=== PATIENT | female | born 1970 | race Caucasian/White ===

== ENCOUNTER → 2022-07-03 | Outpatient (CLI) | payer MEDICAID | END | disposition home or self-care (01) | LOC: RAH 08:43 | PROVIDERS: ATTEND Internal Medicine Gastroenterology | DX: R13.10 Dysphagia, unspecified (principal) | CPT/HCPCS: 74240 ==

== ENCOUNTER → 2022-07-15 | Outpatient (CLI) | payer MEDICAID | END | disposition home or self-care (01) | LOC: RAH 08:43 | PROVIDERS: ATTEND Otolaryngology Plastic Surgery within the Head & Neck | DX: I88.9 Nonspecific lymphadenitis, unspecified (principal) | CPT/HCPCS: 76536 ==

== ENCOUNTER 2024-09-08 09:09 | Emergency (ER) | payer MEDICAID ==
[~2024-09-08] VITALS: Ht 154.9 cm; Wt 59.0 kg
[2024-09-08 09:11] VITALS: BP 101/70
[2024-09-08 09:35] LABS: BASOPHILS # (AUTO) 0.03 K/uL (0.00-0.20); BASOPHILS % (AUTO) 0.3 % (0.0-5.0); EOSINOPHILS # (AUTO) 0.03 K/uL (0.00-0.70); EOSINOPHILS % (AUTO) 0.3 % (0.0-8.0); HEMATOCRIT 43.6 % (36-48); IMMATURE GRANULOCYTE ABSOLUTE 0.04 K/uL (0-1); LYMPHOCYTES # (AUTO) 1.2 K/uL (1.0-4.8); LYMPHOCYTES % (AUTO) 12.8 % (21.0-51.0); MEAN CORPUSCULAR HEMOGLOBIN 30.4 pg (27.0-33.0); MEAN CORPUSCULAR HGB CONC 34.9 g/dL (32.0-36.0); MEAN CORPUSCULAR VOLUME 87.2 fL (79-99); MONOCYTES # (AUTO) 1.1 K/uL (0.1-1.0); MONOCYTES % (AUTO) 11.7 % (3.0-13.0); NEUTROPHILS # (AUTO) 6.8 K/uL (1.8-7.7); NEUTROPHILS % (AUTO) 74.5 % (40.0-77.0); PLATELET COUNT (AUTO) 215 K/uL (130-400); RED CELL DISTRIBUTION WIDTH 12.7 % (11.0-15.5); WHITE BLOOD COUNT (AUTO) 9.1 K/uL (4.8-10.8)
[2024-09-08 09:45] LABS: INR 1.01 (0.85-1.15); PROTHROMBIN TIME 10.7 SEC (9.6-11.6)
[2024-09-08 09:47] LABS: PARTIAL THROMBOPLASTIN TIME 27.2 SEC (26.3-35.5)
--- NOTE | 2024-09-08 10:03 | EKG ---
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
[2024-09-08 10:26] LABS: ALBUMIN 3.8 g/dL (3.5-5.0); BILIRUBIN,DIRECT 0.2 mg/dL (0.0-0.3); BILIRUBIN,TOTAL 1.1 mg/dL (0.2-1.0); CREATININE 0.5 mg/dL (0.5-1.0); POTASSIUM 3.9 mmol/L (3.5-5.1); TOTAL PROTEIN, SERUM 7.6 g/dL (6.0-8.3)
--- NOTE | 2024-09-08 11:32 | NUR ---
ASSUMED CARE AT THIS TIME. PT JUST PLACED IN MY ED BED 16
[2024-09-08] MEDS: PANTOPrazole 40 MG/VIAL IVP ONE (11:43)
[2024-09-08] MEDS: 0.9%NACL 1000ML 1,000 ML IV ONE (11:43)
[2024-09-08] MEDS: cefTRIAXone 2GM VIAL IVPB ONE (11:43)
[2024-09-08 11:44] VITALS: PULSE 95; RESP 15; TEMP 98.9; O2SAT 98
[2024-09-08] MEDS: ondanSETRON 4MG INJ IVP ONE (11:44)
--- NOTE | 2024-09-08 12:06 | HMCIMG ---
Exam Type: CHEST 1VW Clinical Information: cp Comparison: None Findings: Ill-defined infiltrates of the right lower lobe are seen consistent with pneumonia. The heart is normal in size. The bony and soft tissue structures show no worrisome pathology. IMPRESSION: Findings consistent with pneumonia. Follow-up is advised.
[2024-09-08 12:08] LABS: APPEARANCE,URINE CLOUDY (CLEAR); BILIRUBIN,URINE NEGATIVE (NEGATIVE); COLOR,URINE YELLOW (YELLOW); GLUCOSE, URINE (UA) NEGATIVE (NEGATIVE); KETONES,URINE 20 mg/dL (NEGATIVE); LEUKOCYTE ESTERASE ,URINE 25 Leu/uL (NEGATIVE); NITRATE,URINE NEGATIVE (NEGATIVE); PH,URINE 5.5 (5.0-8.0); PROTEIN,URINE 20 mg/dL (NEGATIVE)
[2024-09-08 12:11] LABS: ADD UA MICROSCOPIC YES
[2024-09-08 12:14] LABS: MUCUS,URINE FEW LPF (None Seen); RBC,URINE 0-1 /HPF (0-1); SQUAMOUS EPITHELIAL CELL,UR MOD /HPF (0-2)
[2024-09-08] MEDS ORDERED: AZIT250T9 PO (13:23)
[2024-09-08] MEDS ORDERED: PANT20TA PO (13:23)
--- NOTE | 2024-09-08 13:23 | ERN ---
ED Note History of Present Illness Stated Complaint: VOMITING Chief Complaint: Hematemesis/Vomiting Blood Time Seen by MD: 09:11 Dictation: 54-year-old female presenting to the emergency department with nausea vomiting diarrhea and dark stool reports that she thinks she might be bleeding and vomiting blood. Patient also reported chronic wound to the left foot no fever no chest pain. Patient reports that she has seen her doctor in the clinic in the past few weeks. Allergies: Coded Allergies: pregabalin (Unverified Allergy, Unknown, 09/08/24) Home Meds Active Scripts Azithromycin (Azithromycin) 250 Mg Tablet, 1 TAB PO AD for 5 Days, #6 TAB 0 Refills 2 the first day followed by 1 for days 2-5 Prov:REI CARRENO MD 09/08/24 Pantoprazole Sodium (Protonix) 20 Mg Tablet.dr, 1 TAB PO DAILY for 10 Days, #10 TAB 0 Refills Prov:REI CARRENO MD 09/08/24 Past Medical History Past Medical History: Other Additional Past Medical Hx: EMPHYSEMA Surgical History: Other Review of System Dictation Constitutional: Negative for fever,chills, and weight loss Eyes: Negative for injury, pain,redness, and discharge ENT: Negative for injury,pain or swelling Cardiovascular: Negative for chest pain, palpitations, and edema Respiratory: Negative for shortness of breath, cough, and wheezing, Abdomen/GI: Per HPI Back: Negative for injury and pain : Negative for injury, bleeding and discharge MS/Extremity: Negative for injury and deformity Skin: Negative for rash, and discoloration Neuro: Negative for headache, weakness, numbness, tingling, and seizure Psych: Negative for suicide ideation, homicidal ideation, and hallucinations Initial Vital Sign VS Vital Signs Date Time Temp Pulse Resp B/P (MAP) Pulse Ox O2 Delivery O2 Flow Rate FiO2 09/08/24 09:11 100.2 105 20 101/70 99 09/08/24 11:44 Room Air* 0 21 Physical Exam Dictation General: awake, alert, NAD Head/Face: Normocephalic, atraumatic Eyes: PERRL, EOMI, vision at baseline ENT: oral cavity clear, TMs clear, no signs of infection Neck: Trachea midline, supple, no nuchal rigidity Cardiovascular: RRR, normal S1/S2, No MRGs, no JVD Respiratory: CTAB, no respiratory distress, No rales or wheezes Abdomen: Soft, non-tender, non-distended, normal bowel sounds, no guarding or rebound. Skin: Warm, dry, normal turgor, no rash, left foot cellulitis mild MS/Extremity: Pulses equal, no cyanosis, neurovascular intact, FROM Neuro: COAx4, GCS 15, strength 5/5, CN 2-12 intact, normal cerebellar exam, normal gait, Psych: Normal behavior, mood, and affect normal Results (Laboratory/Radiology) Laboratory/Radiology Laboratory Tests Test 09/08/24 09:24 09/08/24 11:58 White Blood Count 9.1 K/uL (4.8-10.8) Red Blood Count 5.00 MIL/uL (4.00-5.50) Hemoglobin 15.2 g/dL (12.0-16.0) Hematocrit 43.6 % (36-48) Mean Corpuscular Volume 87.2 fL (79-99) Mean Corpuscular Hemoglobin 30.4 pg (27.0-33.0) Mean Corpuscular Hemoglobin Concent 34.9 g/dL (32.0-36.0) Red Cell Distribution Width 12.7 % (11.0-15.5) Platelet Count 215 K/uL (130-400) Mean Platelet Volume 8.3 fL (7.5-10.5) Immature Granulocyte % (Auto) 0.4 % (0-1) Neutrophils (%) (Auto) 74.5 % (40.0-77.0) Lymphocytes (%) (Auto) 12.8 % (21.0-51.0) L Monocytes (%) (Auto) 11.7 % (3.0-13.0) Eosinophils (%) (Auto) 0.3 % (0.0-8.0) Basophils (%) (Auto) 0.3 % (0.0-5.0) Neutrophils # (Auto) 6.8 K/uL (1.8-7.7) Lymphocytes # (Auto) 1.2 K/uL (1.0-4.8) Monocytes # (Auto) 1.1 K/uL (0.1-1.0) H Eosinophils # (Auto) 0.03 K/uL (0.00-0.70) Basophils # (Auto) 0.03 K/uL (0.00-0.20) Absolute Immature Granulocyte (auto 0.04 K/uL (0-1) Nucleated Red Blood Cells 0.0 % (0.0-0.19) Prothrombin Time 10.7 SEC (9.6-11.6) Prothromb Time International Ratio 1.01 (0.85-1.15) Activated Partial Thromboplast Time 27.2 SEC (26.3-35.5) Sodium Level 133 mmol/L (136-145) L Potassium Level 3.9 mmol/L (3.5-5.1) Chloride Level 97 mmol/L (101-111) L Carbon Dioxide Level 28 mmol/L (21-32) Blood Urea Nitrogen 15 mg/dL (7-18) Creatinine 0.5 mg/dL (0.5-1.0) Glomerular Filtration Rate Calc 113 mL/min (>90) Random Glucose 112 mg/dL (70-105) H Lactic Acid Level 1.1 mmol/L (0.8-2.5) Total Calcium 9.2 mg/dL (8.5-10.1) Total Bilirubin 1.1 mg/dL (0.2-1.0) H Direct Bilirubin 0.2 mg/dL (0.0-0.3) Aspartate Amino Transf (AST/SGOT) 23 U/L (10-37) Alanine Aminotransferase (ALT/SGPT) 31 U/L (12-78) Alkaline Phosphatase 80 U/L (50-136) Total Creatine Kinase 59 U/L (21-232) Troponin I High Sensitivity < 4 ng/L (4-50) L Total Protein 7.6 g/dL (6.0-8.3) Albumin 3.8 g/dL (3.5-5.0) Lipase 45 U/L (16-77) Urine Color YELLOW (YELLOW) Urine Appearance CLOUDY (CLEAR) H Urine pH 5.5 (5.0-8.0) Urine Specific [place] 1.028 (1.001-1.031) Urine Protein 20 mg/dL (NEGATIVE) H Urine Glucose (UA) NEGATIVE mg/dL (NEGATIVE) Urine Ketones 20 mg/dL (NEGATIVE) H Urine Occult Blood +- (TRACE) (NEGATIVE) H Urine Nitrate NEGATIVE (NEGATIVE) Urine Bilirubin NEGATIVE mg/dL (NEGATIVE) Urine Urobilinogen 2.0 mg/dL (0.2-1.0) H Urine Leukocyte Esterase 25 Jared/uL (NEGATIVE) H Urine RBC 0-1 /HPF (0-1) Urine WBC 2-5 /HPF (0-1) H Urine Squamous Epithelial Cells MOD /HPF (0-2) Urine Bacteria None /HPF (None Seen) Labs Reviewed?: Yes EKG Comment: Heart rate 100, normal sinus rhythm, normal intervals ED Course ED Course Orders Procedure Category Date Status Time Iv Insertion CPOE 09/08/24 Transmitted 09:19 Pulse Ox(Continuous) RT 09/08/24 Transmitted 09:19 Vital Signs Per CPOE 09/08/24 Transmitted Routine 09:19 12 Lead Ekg Tracing- EKG 09/08/24 Complete Technical 09:19 Cbc With Differential LAB 09/08/24 Complete 09:19 Blood Cult CHUCK 09/08/24 In Process 09:19 Urinalysis Profile LAB 09/08/24 Complete 09:19 Creatine Kinase, Total LAB 09/08/24 Complete 09:19 Troponin I High LAB 09/08/24 Complete Sensitivity 09:19 Lactic Acid LAB 09/08/24 Complete 09:19 Basic Metabolic Panel LAB 09/08/24 Complete 09:19 Pt And Ptt LAB 09/08/24 Complete 09:21 Hepatic Function Panel LAB 09/08/24 Complete 09:19 Lipase LAB 09/08/24 Complete 09:19 Pantoprazole 40mg Inj PHA 09/08/24 Complete (Protonix 40mg Inj 10:30 Ceftriaxone 2gm Vial PHA 09/08/24 Complete (Rocephin 2gm Inj) 10:30 0.9%Nacl 1000ml (Ns PHA 09/08/24 Complete 1000ml) 10:30 Ondansetron 4mg Inj PHA 09/08/24 Complete (Zofran 4mg Inj) 10:30 Chest 1vw RAD 09/08/24 Resulted 10:52 Admit Orders ADM 09/08/24 Transmitted 13:13 Current Medications Medications (Trade) Dose Ordered Sig/Patrick Route PRN Reason Start Time Stop Time Status Last Admin Dose Admin Ceftriaxone Sodium (Rocephin 2gm Inj) 2 gm ONCE ONCE IVPB 09/08/24 10:30 09/08/24 10:31 DC 09/08/24 11:43 Ondansetron HCl (zoFRAN 4MG INJ) 4 mg ONCE ONCE IVP 09/08/24 10:30 09/08/24 10:31 DC 09/08/24 11:44 Pantoprazole Sodium (PROTonix 40MG INJ) 40 mg ONCE ONCE IVP 09/08/24 10:30 09/08/24 10:31 DC 09/08/24 11:43 Sodium Chloride 1,000 ml @ 0 mls/hr ONCE ONCE IV 09/08/24 10:30 09/08/24 10:31 DC 09/08/24 11:43 Vital Signs Date Time Temp Pulse Resp B/P (MAP) Pulse Ox O2 Delivery O2 Flow Rate FiO2 09/08/24 11:44 99.0 95 15 98 Room Air* 0 21 09/08/24 09:11 100.2 105 20 101/70 99 HEART Score Response (Comments) Value History: Moderate suspicion (+1) 1 Total 1 Medical Decision Making MDM MDM: Differential diagnosis: Rationale: Tests considered and ordered secondary to shared decision making include: labs, ECG and radiology Previous outside records reviewed: Old ER visits. Risk of complication and/or morbidity or mortality of patient management: None Medications-Per medication reconciliation Need for hospitalization: Patient does meet criteria for hospitalization. Need for emergency major/minor surgery: No There are no social concerns with this patient. Prescription drug management Prescriptions will include symptomatic care Patient's prior external medical records from other ER visits were reviewed by me as indicated. Prior testing and results from previous visits were reviewed. Prior tests were taken into account with medical decision making and resource utilization, independent historian/historians were used to obtain complete medical history. I independently interpreted the test that were performed, results were reviewed by me and considered findings on radiology if ordered. Medical management and examination interpretation discussions were had by me with other qualified healthcare professionals as indicated for the patient's care. 54-year-old female with GI bleed community-acquired pneumonia and left foot cellulitis hemodynamically stable initial workup appears stable however due to risk factors and multiple medical issues we consulted for admission however patient change her mind afterwards and left against medical advice I sent out prescriptions and advised her to return if she change her mind about treatment and admission. DX & DISP Disposition: AMA Departure Impression: Primary Impression: CAP (community acquired pneumonia) Additional Impressions: Cellulitis of right foot, GI (gastrointestinal bleed ) Condition: Stable Scripts Azithromycin (Azithromycin) 250 Mg Tablet 1 TAB PO AD for 5 Days, #6 TAB 0 Refills 2 the first day followed by 1 for days 2-5 Prov: REI CARRENO MD 09/08/24 Pantoprazole Sodium (Protonix) 20 Mg Tablet.dr 1 TAB PO DAILY for 10 Days, #10 TAB 0 Refills Prov: REI CARRENO MD 09/08/24 Referrals: SEN SANTANA MD (PCP) REI CARRENO MD Sep 08, 2024 13:23
--- NOTE | 2024-09-08 13:35 | NUR ---
DR. JOSHI MADE AWARE OF PATIENT LEAVING AMA, ADVISED TO FU WITH PCP IN AM , WAS GIVEN RX BY DANYELL
== END 2024-09-08 13:37 | disposition left against medical advice (07) ==
LOC: EDH 09:09
DX: K92.2 Gastrointestinal hemorrhage, unspecified (principal); J18.9 Pneumonia, unspecified organism; L03.115 Cellulitis of right lower limb; J43.9 Emphysema, unspecified; Z79.899 Other long term (current) drug therapy
CPT/HCPCS: 99285; 96374; 96375; 71045; 82550; 80076; 84484; 80048; 83690; 85025; 85610; 85730; 87040 ×2; 83605; 81001; 36415; 93005; J7030; J0696; J2405; J2470